=== PATIENT | male | born 2000 | race Hispanic/Latino ===

== ENCOUNTER 2024-01-22 21:59 | Emergency (ER) | payer OTHER ==
[2024-01-22] MEDS ORDERED: Lorazepam 1 MG TAB ONE (22:34)
== END 2024-01-22 23:45 | disposition home or self-care (01) ==
LOC: CSHERS 21:59
DX: F41.0 Panic disorder [episodic paroxysmal anxiety] (principal); I10 Essential (primary) hypertension
CPT/HCPCS: 99283

== ENCOUNTER 2024-02-01 22:21 | Emergency (ER) | payer OTHER ==
[2024-02-01 23:34] LABS: #Basophils 0.07 10x3/uL (0.0-0.2); #Eosinophils 0.29 10x3/uL (0.0-0.5); #Monocytes 0.79 10x3/uL (0.0-1.1); #Neutrophils 12.27 10x3/uL (1.5-8.4); %Basophils 0.4 % (0.0-2.0); %Eosinophils 1.7 % (0.0-6.0); %Lymphocytes 20.1 % (18.0-47.0); %Monocytes 4.7 % (0.0-10.0); %Neutrophils 72.5 % (40.0-75.0); Hematocrit 43.8 % (38.8-50.0); Mean Corpuscular HGB CONC 34.2 g/dL (32.0-36.0); Mean Corpuscular Hemoglobin 30.5 pg (27.0-33.0); Mean Platelet Volume 9.2 fL (7.4-10.4); Platelet Count 449 10x3/uL (150-450); RBC Distribution Width 13.7 % (11.5-14.5); Red Blood Cell (RBC) Count 4.92 10x6/uL (4.32-5.72); White Blood Cell (WBC) Count 16.9 10x3/uL (3.5-10.5)
[2024-02-01 23:43] LABS: ALT (SGPT) 38 U/L (8-55); AST (SGOT) 35 U/L (5-34); Albumin 3.6 g/dL (3.5-5.0); Alkaline Phosphatase 52 U/L (40-110); Anion Gap 17 mmol/L (10-20); BUN (Urea Nitrogen) 15 mg/dL (8.9-20.6); Bilirubin, Total 0.4 mg/dL (0.2-1.2); Calc. Creatinine Clearance 0 mL/min (70-130); Calcium 10.6 mg/dL (7.8-10.44); Carbon Dioxide 21 mmol/L (22-29); Chloride 107 mmol/L (98-107); Estimated GFR 123; Globulin 4.9 g/dL (2.4-3.5); Glucose 102 mg/dL (70-105); Potassium 3.5 mmol/L (3.5-5.1); Protein, Total 8.5 g/dL (6.0-8.3); Sodium 141 mmol/L (136-145)
[2024-02-02] MEDS ORDERED: predniSONE 20 MG TAB ONE (00:33)
[2024-02-02] MEDS ORDERED: Azithromycin 250 MG TAB ONE (00:33)
== END 2024-02-02 00:36 | disposition home or self-care (01) ==
LOC: CSHERS 22:21
DX: J18.9 Pneumonia, unspecified organism (principal); I10 Essential (primary) hypertension
CPT/HCPCS: 71045; 80053; 85025; 85379; J7512

== ENCOUNTER → 2024-03-02 | Emergency (ER) | payer OTHER | LOC: CSHERS 19:34 | DX: F41.0 Panic disorder [episodic paroxysmal anxiety] (principal); R06.02 Shortness of breath; I10 Essential (primary) hypertension | CPT/HCPCS: 93005; 99284 ==

== ENCOUNTER 2024-04-01 18:55 | Emergency (ER) | payer OTHER ==
[2024-04-01] MEDS ORDERED: Diazepam 10 MG/2 ML SYRINGE ONE (20:42)
== END 2024-04-01 20:53 | disposition home or self-care (01) ==
LOC: CSHERS 18:55
DX: R06.02 Shortness of breath (principal); I10 Essential (primary) hypertension
CPT/HCPCS: 71045; 80053; 84484; 85025; 87428; 93005; 96372; 99284; J3360

== ENCOUNTER → 2024-04-01 | Emergency (ER) | payer OTHER ==
[2024-04-01 14:10] LABS: #Basophils 0.06 10x3/uL (0.0-0.2); #Monocytes 0.65 10x3/uL (0.0-1.1); #Neutrophils 7.21 10x3/uL (1.5-8.4); %Basophils 0.6 % (0.0-2.0); %Eosinophils 2.8 % (0.0-6.0); %Lymphocytes 23.6 % (18.0-47.0); %Neutrophils 66.3 % (40.0-75.0); Hematocrit 41.1 % (38.8-50.0); Hemoglobin 13.5 g/dL (13.5-17.5); Mean Corpuscular HGB CONC 32.8 g/dL (32.0-36.0); Mean Corpuscular Hemoglobin 29.7 pg (27.0-33.0); Mean Corpuscular Volume 90.5 fL (81.2-95.1); Mean Platelet Volume 8.8 fL (7.4-10.4); Platelet Count 427 10x3/uL (150-450); RBC Distribution Width 13.2 % (11.5-14.5); Red Blood Cell (RBC) Count 4.54 10x6/uL (4.32-5.72); White Blood Cell (WBC) Count 10.9 10x3/uL (3.5-10.5)
[2024-04-01 14:24] LABS: ALT (SGPT) 33 U/L (8-55); AST (SGOT) 21 U/L (5-34); Albumin 3.2 g/dL (3.5-5.0); Alkaline Phosphatase 45 U/L (40-110); Anion Gap 13 mmol/L (10-20); BUN (Urea Nitrogen) 12 mg/dL (8.9-20.6); Bilirubin, Total 0.3 mg/dL (0.2-1.2); Calc. Creatinine Clearance 0 mL/min (70-130); Calcium 9.3 mg/dL (7.8-10.44); Carbon Dioxide 25 mmol/L (22-29); Chloride 105 mmol/L (98-107); Estimated GFR 127; Globulin 3.6 g/dL (2.4-3.5); Glucose 85 mg/dL (70-105); Potassium 4.1 mmol/L (3.5-5.1); Protein, Total 6.8 g/dL (6.0-8.3); Sodium 139 mmol/L (136-145)
[2024-04-01 14:29] LABS: Troponin I Less than 0.010 ng/mL (< 0.028)
== END ==
LOC: CSHERS 12:44
DX: J06.9 Acute upper respiratory infection, unspecified (principal); I10 Essential (primary) hypertension
CPT/HCPCS: 71045; 80053; 84484; 85025; 87428; 93005